=== PATIENT | female | born 1955 | race Caucasian/White ===

== ENCOUNTER → 2017-08-31 | Day surgery (SDC) | payer BC ==
[~2017-08-31] MED LIST: Lactated Ringers 1,000 ML IV SCH; Midazolam 1 MG/ML 2 ML SDV ONE; Propofol 200 MG/20 ML SDV ONE; Sodium Chloride 0.9% 10 ML Syringe FLUSH PRN; Sodium Chloride 0.9% 2.5 ML Syringe FLUSH PRN; fentaNYL 100 MCG/2 ML SDV ONE
--- NOTE | 2017-08-31 11:03 | PCM.PREANE ---
Preanesthetic Assessment - Anesthesia/Transfusion/Family Hx Anesthesia History: Prior Anesthesia Without Reaction Other Type of Anesthesia Reaction Comment: pt states her sister had to spend the night in hospital due to anesthesia Family History of Anesthesia Reaction: No Transfusion History: No Prior Transfusion(s) - Review of Systems General: No Symptoms Pulmonary: No Symptoms Cardiovascular: No Symptoms Gastrointestinal: No Symptoms Neurological: No Symptoms Other: Reports: None - Physical Assessment NPO Status Date: 08/30/17 O2 Sat by Pulse Oximetry: 97 Respiratory Rate: 16 Vital Signs: Last Vital Signs Temp 36.1 C 08/31/17 10:08 Pulse 87 08/31/17 10:08 Resp 16 08/31/17 10:08 BP 147/82 H 08/31/17 10:08 Pulse Ox 97 08/31/17 10:08 Height: 1.68 m Weight: 88.904 kg ASA Class: 2 Mental Status: Alert & Oriented x3 Airway Class: Mallampati = 1 Dentition: Reports: Normal Dentition ROM/Head Extension: Full Lungs: Clear to Auscultation, Normal Respiratory Effort Cardiovascular: Regular Rate, Regular Rhythm - Allergies Allergies/Adverse Reactions: Allergies Allergy/AdvReac Type Severity Reaction Status Date / Time Sulfa (Sulfonamide Allergy Hives Verified 08/28/17 14:18 Antibiotics) - Anesthesia Plan Pre-Op Medication Ordered: None - Acknowledgements Anesthesia Type Planned: MAC Pt an Appropriate Candidate for the Planned Anesthesia: Yes Alternatives and Risks of Anesthesia Discussed w Pt/Guardian: Yes Pt/Guardian Understands and Agrees with Anesthesia Plan: Yes Additional Comments: PMH: htn, thyroid replacement. 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 HAND History: Reports: , Spontaneous Musculoskeletal History: Reports: Fracture, Osteoarthritis Other Musculoskeletal History: hx fx arm as a child Endocrine/Metabolic History: Reports: Hypothyroidism, Obesity/BMI 30+ Other Hematologic History: vitamin D deficiency - Past Surgical History Head Surgeries/Procedures: Reports: None Female Surgical History: Reports: D&C, Hysterectomy, Other (See Below) Other Female Surgeries/Procedures: bladder repair Musculoskeletal Surgical History: Reports: Hip Replacement, Knee Replacement Other Musculoskeletal Surgeries/Procedures:: rt hip replacement, left knee replacement - SUBSTANCE USE Smoking Status *Q: Former Smoker Tobacco Use Within Last Twelve Months: No Recreational Drug Use History: No - HOME MEDS Home Medications: Home Meds Aspirin [Irvona Aspirin] 81 mg PO DAILY 02/11/16 [History] Cholecalciferol (Vitamin D3) [Vitamin D3] 2,000 units PO DAILY 02/11/16 [History ] Ibuprofen 2 tab PO ASDIRECTED PRN 02/11/16 [History] Levothyroxine [Synthroid] 100 mcg PO DAILY 02/11/16 [History] Metoprolol Succinate 50 mg PO DAILY 02/11/16 [History] Tolterodine Tartrate [Detrol LA] 4 mg PO DAILY 02/11/16 [History] Estradiol [Estrace 0.01% Vaginal Crm] 1 applic VAG DAILY 08/28/17 [History] Fenofibrate Nanocrystallized [Tricor] 145 mg PO DAILY 08/28/17 [History] Irbesartan [Avapro] 150 mg PO DAILY 08/28/17 [History] Pentosan Polysulfate Sodium [Elmiron] 1 tab PO TID 08/28/17 [History] Calcium Carbonate/Vitamin D3 [Calcium 500 + Vit D Caplet] 1 tab PO DAILY [History] Multivitamin [Gummi Bear Multivitamin] 1 tab.chew CHEW DAILY 08/29/17 [History] [place]-3S/DHA/Epa/Fish Oil [Fish Oil [place]-3 Softgel] 1 tab PO DAILY 08/29/17 [ History] - CURRENT (IN HOUSE) MEDS Current Meds: Current Medications Lactated Ringer's (Ringers, Lactated) 1,000 mls @ 125 mls/hr IV ASDIRECTED BISI Last Admin: 08/31/17 10:14 Dose: 125 mls/hr Sodium Chloride (Saline Flush) 10 ml FLUSH ASDIRECTED PRN PRN Reason: Keep Vein Open Sodium Chloride (Saline Flush) 2.5 ml FLUSH ASDIRECTED PRN PRN Reason: Keep Vein Open Sodium Chloride (Saline Flush) 10 ml FLUSH ASDIRECTED PRN PRN Reason: Keep Vein Open Sodium Chloride (Saline Flush) 2.5 ml FLUSH ASDIRECTED PRN PRN Reason: Keep Vein Open Discontinued Medications Fentanyl (Sublimaze) Confirm Administered Dose 100 mcg .ROUTE .STK-MED ONE Stop: 08/31/17 10:45 Midazolam HCl (Versed 1 Mg/Ml) Confirm Administered Dose 2 mg .ROUTE .STK-MED ONE Stop: 08/31/17 10:45 Propofol (Diprivan 20 Ml) Confirm Administered Dose 200 mg .ROUTE .STK-MED ONE Stop: 08/31/17 10:45
--- NOTE | 2017-08-31 12:47 | PCM.OPNOTE ---
- General Post-Op/Procedure Note Date of Surgery/Procedure: 08/31/17 Operative Procedure(s): Colonoscopy Findings: Normal colonoscopy. Cecum to anus time 10 minutes. Unable to retroflex scope in rectum or at cecum. Pre Op Diagnosis: Colonoscopy Post-Op Diagnosis: same Anesthesia Technique: MAC Primary Surgeon: Anadi Leonard Condition: Good
--- NOTE | 2017-08-31 12:58 | PCM48HPAN ---
Post Anesthesia Note - EVALUATION WITHIN 48HRS OF ANESTHETIC Vital Signs in Normal Range: Yes Patient Participated in Evaluation: Yes Respiratory Function Stable: Yes Airway Patent: Yes Cardiovascular Function Stable: Yes Hydration Status Stable: Yes Pain Control Satisfactory: Yes Nausea and Vomiting Control Satisfactory: Yes Mental Status Recovered: Yes Resp Rate: 9
[2017-08-31 13:27] VITALS: BP 110/70
--- NOTE | 2017-08-31 13:46 | PCM.POSTAN ---
POST ANESTHESIA ASSESSMENT - MENTAL STATUS Mental Status: Alert, Oriented - RESPIRATORY Respiratory Status: Respiratory Rate WNL, Airway Patent, O2 Saturation Stable - CARDIOVASCULAR CV Status: Pulse Rate WNL, Blood Pressure Stable - GASTROINTESTINAL GI Status: No Symptoms - POST OP HYDRATION Hydration Status: Adequate & Stable
--- NOTE | 2017-08-31 16:54 | OR ---
SURGEON: GARIMA JONES MD DATE OF PROCEDURE: 08/31/2017 PREOPERATIVE DIAGNOSIS: Screening colonoscopy. POSTOPERATIVE DIAGNOSIS: Screening colonoscopy. PROCEDURE PERFORMED: Screening colonoscopy. ANESTHESIA: MAC. INSTRUMENT USED: Olympus colonoscope. EXTENT OF EXAM: To the cecum. PREPARATION: Good. LIMITATIONS: None. INDICATIONS: The patient is a 62-year-old female, who presents for screening colonoscopy. Her mother was diagnosed with colon cancer in her 70s. The patient has had no change in her bowel habits. We discussed the need for colonoscopy. I explained the procedure, expected perioperative course, and risks including bleeding, infection, or damage to surrounding structures including perforation. The patient verbalized understanding and wishes to proceed. PROCEDURE IN DETAIL: The patient was brought into the endoscopy suite and placed in the left lateral decubitus position. A time-out was completed verifying the patient's name, age, date of , allergies, and procedure to be performed. Monitored anesthesia care was induced and continuous oxygen was provided via nasal cannula throughout the procedure. After adequate sedation was achieved, a digital rectal exam was performed. This exam was within normal limits. A well lubricated colonoscope was inserted into the rectum and advanced under direct visualization to the level of cecum. The cecum was identified by both visual and anatomic landmarks. A photograph was taken of the cecal cap. I made multiple attempts trying to retroflex the scope within the cecum, but was unable to do so safely. The scope was then fully withdrawn while examining the color, texture, anatomy, and integrity of the mucosa from the cecum to the anal canal. The patient had some tortuosity within her sigmoid colon, but there was no evidence of any diverticulosis or polyps within the colon. The scope was then brought into the rectum. The rectum appeared normal other than it was somewhat narrowed. I made multiple attempts as well and retroflexing the scope within the rectum. I was unable to do so safely. I was able to get a very good look at the rectum and it appeared to be normal with no evidence of any grossly enlarged hemorrhoids, polyps, or masses. The scope was removed from the patient. The cecum to anus time was 10 minutes. The patient tolerated the procedure well and was taken to PACU in stable condition. ENDOSCOPIC DIAGNOSIS: Normal colonoscopy. RECOMMENDATIONS: Follow up in clinic in 5 years. TOSHA LUNA /[id number]
== END | disposition home or self-care (01) ==
LOC: MW.SDS 09:53
PROVIDERS: ATTEND Surgery
DX: Z12.11 Encounter for screening for malignant neoplasm of colon (principal); K63.89 Other specified diseases of intestine; I10 Essential (primary) hypertension; E03.9 Hypothyroidism, unspecified; E55.9 Vitamin D deficiency, unspecified; E66.9 Obesity, unspecified; E78.00 Pure hypercholesterolemia, unspecified; Z68.31 Body mass index [BMI] 31.0-31.9, adult; N39.0 Urinary tract infection, site not specified; M19.90 Unspecified osteoarthritis, unspecified site; Z79.2 Long term (current) use of antibiotics; Z79.82 Long term (current) use of aspirin; Z79.899 Other long term (current) drug therapy; Z88.2 Allergy status to sulfonamides; Z87.891 Personal history of nicotine dependence; Z83.71 Family history of colonic polyps
CPT/HCPCS: 45378; J2250; J3010; J7120; J2704